=== PATIENT | female | born 1970 | race Caucasian/White ===

== ENCOUNTER → 2017-07-06 | Outpatient (CLI) | payer OTHER ==
--- NOTE | 2017-07-06 19:17 | CT ---
EXAMINATION TYPE: CT abdomen pelvis w con DATE OF EXAM: 07/06/2017 COMPARISON: 01/06/2011 HISTORY: Chronic kidney infections with back and abdominal pain x [address] DLP: 1195.60 mGycm Automated exposure control for dose reduction was used. TECHNIQUE: Helical acquisition of images was performed from the lung bases through the pelvis. CONTRAST: Performed with Oral Contrast and with IV Contrast, patient injected with 100 mL of Omnipaque 300. FINDINGS: Lung bases are clear. There is no pleural effusion. Liver spleen pancreas appear normal. There are cl ips from cholecystectomy. Bile ducts are not dilated. There is a 1 cm low-density left and right adrenal mass consistent with benign disease. Kidneys have normal size and contour. There is no hydronephrosis. There is normal contrast opacificat ion of the kidneys. There is no retroperitoneal adenopathy. There is no ascites. I see no intestinal wall thickening. There are no dilated loops. Appendix is not definitely seen. There is no sign of mara endicitis. I see no bony destructive process. Bladder distends smoothly. There is no sign of a pelvic mass. IMPRESSION: NEGATIVE CT SCAN OF THE ABDOMEN AND PELVIS. NO ADVERSE CHANGE COMPARED TO OLD EXAM. NO SIGN OF RENAL INFECTION.
== END | disposition home or self-care (01) ==
LOC: RADCTMAIN 16:55
PROVIDERS: ATTEND Family Medicine
DX: R10.9 Unspecified abdominal pain (principal); Z88.0 Allergy status to penicillin; Z88.1 Allergy status to other antibiotic agents
CPT/HCPCS: 74177; Q9967

== ENCOUNTER → 2017-07-18 | Outpatient (CLI) | payer OTHER ==
--- NOTE | 2017-07-18 17:19 | US ---
EXAMINATION TYPE: US neck DATE OF EXAM: 07/18/2017 COMPARISON: NONE CLINICAL HISTORY: R59.9 swollen lymph nodes,R22.0 Swelling/Mass Neck. Patient palpable area on left scanned, small lymph node noted here. Contralateral side scanned, no abnormal lymph nodes noted. IMPRESSION: No significant abnormality. There is a oval-shaped 5 x 3 mm area that could be a ordinary lymph node in the area of concern above the left clavicle.
== END | disposition home or self-care (01) ==
LOC: RADUSWWP 16:49
PROVIDERS: ATTEND Family Medicine
DX: R59.9 Enlarged lymph nodes, unspecified (principal)
CPT/HCPCS: 76536

== ENCOUNTER → 2018-06-19 | Outpatient (CLI) | payer BC ==
--- NOTE | 2018-06-19 12:20 | XR ---
EXAMINATION TYPE: XR chest 2V DATE OF EXAM: 06/19/2018 COMPARISON: NONE HISTORY: Preoperative evaluation. TECHNIQUE: Frontal and lateral views of the chest are obtained. FINDINGS: There is no focal air space opacity, pleural effusion, or pneumothorax seen. The cardiac silhouette size is within normal limits. The osseous structures are intact. Cholecystectomy clips r eside within the right upper quadrant. IMPRESSION: No acute cardiopulmonary process.
[2018-06-19 12:37] LABS: Appearance,Urine Clear (Clear); Bilirubin,Urine Negative (Negative); Blood,Urine Negative (Negative); Color,Urine Yellow; Glucose,Urine (UA) Negative (Negative); Ketones,Urine Negative (Negative); Leukocyte Esterase,Urine Negative (Negative); Nitrite,Urine Negative (Negative); PH, Urine 5.5 (5.0-8.0); Protein,Urine Negative (Negative); Specific Gravity,Urine 1.022 (1.001-1.035); Urobilinogen,Urine <2.0 mg/dL (<2.0)
[2018-06-19 12:38] LABS: Basophils % (A) 1 %; Eosinophils # (A) 0.2 k/uL (0-0.7); Eosinophils % (A) 2 %; HCT 48.2 % (34.0-46.0); Lymphocytes # (A) 2.1 k/uL (1.0-4.8); Lymphocytes % (A) 31 %; MCH 29.1 pg (25.0-35.0); MCHC 31.1 g/dL (31.0-37.0); MCV 93.8 fL (80.0-100.0); Mean Platelet Volume 10.2; Monocytes # (A) 0.3 k/uL (0-1.0); Monocytes % (A) 4 %; Neutrophils # (A) 4.1 k/uL (1.3-7.7); Neutrophils % (A) 61 %; Platelet Count 201 k/uL (150-450); RBC 5.14 m/uL (3.80-5.40); RDW 13.4 % (11.5-15.5); WBC 6.8 k/uL (3.8-10.6)
[2018-06-19 12:44] LABS: INR 0.9 (<1.2); Partial Thromboplastin Time 25.2 sec (22.0-30.0); Prothrombin Time 9.4 sec (9.0-12.0)
[2018-06-19 12:53] LABS: Anion Gap 10 mmol/L; Blood Urea Nitrogen 13 mg/dL (7-17); Carbon Dioxide 25 mmol/L (22-30); Chloride 107 mmol/L (98-107); Glucose 90 mg/dL (74-99); Potassium 4.8 mmol/L (3.5-5.1); Sodium 142 mmol/L (137-145)
== END | disposition home or self-care (01) ==
LOC: LABPAT 10:22
PROVIDERS: ATTEND Orthopaedic Surgery Orthopaedic Surgery of the Spine
DX: Z01.818 Encounter for other preprocedural examination (principal); M48.061 Spinal stenosis, lumbar region without neurogenic claudication; Z01.812 Encounter for preprocedural laboratory examination
CPT/HCPCS: 36415; 71046; 80048; 81003; 85025; 85610; 85730; 87070

== ENCOUNTER → 2018-06-19 | Outpatient (CLI) | payer BC ==
[2018-06-19 16:16] LABS: Protein, Total 7.4 g/dL (6.2-8.2)
[2018-06-20 13:35] LABS: Albumin 4.29 g/dL (3.80-4.90); Gamma Globulin 1.27 g/dL (0.70-1.50)
== END | disposition home or self-care (01) ==
LOC: LABWHC1 10:30
PROVIDERS: ATTEND Family Medicine
DX: K58.9 Irritable bowel syndrome, unspecified (principal)
CPT/HCPCS: 36415; 84165

== ENCOUNTER 2018-07-04 08:44 | Inpatient (IN) | payer BC, OTHER ==
[2018-07-02 09:36] VITALS: BMI 32.2
[~2018-07-04 08:44] MED LIST: BACITRACIN 50,000 UNIT, POLYMYXIN B 500,000 UNIT in SODIUM CHLORIDE 0.9% IRRIGATIO 1,00... IRRIGATION ONE; ceFAZolin IN SWFI 2 GM/20 ML SYRINGE IVP ONE
[2018-07-04] MEDS ORDERED: LIDOCAINE 1% 20 ML VIAL (10MG/ML) FOR IV START INTRADERMA PRN (09:16)
[2018-07-04] MEDS: LACTATED RINGERS 1,000 ML IV SCH (09:42)
[2018-07-04] MEDS ORDERED: ONDANSETRON 4 MG/2 ML VIAL IVP ONE (09:42)
[2018-07-04] MEDS ORDERED: MIDAZOLAM 2 MG/2 ML VIAL IV ONE (09:46)
[2018-07-04] MEDS ORDERED: fentaNYL (PF) 50 MCG/ML 2 ML AMP IVP ONE (11:50)
[2018-07-04] MEDS ORDERED: LACTATED RINGERS 1,000 ML IV ONE ×2 (12:05→15:55)
[2018-07-04] MEDS ORDERED: GLYCOPYRROLATE 0.2 MG/ML 2 ML VIAL ONE (13:27)
[2018-07-04] MEDS ORDERED: ePHEDrine SULFATE/0.9% NACL/PF 50 MG/5 ML SYRINGE IV ONE (13:27)
[2018-07-04] MEDS ORDERED: NEOSTIGMINE 1 MG/ML 10 ML VIAL ONE (13:27)
[2018-07-04] MEDS ORDERED: ROCURONIUM BROMIDE 10 MG/ML 10 ML VIAL IV ONE (13:27)
[2018-07-04] MEDS ORDERED: LIDOCAINE 1% INJ 10MG/ML (20 ML MDV) ONE (13:27)
[2018-07-04] MEDS ORDERED: SUCCINYLCHOLINE CHLORIDE 100 MG/5 ML SYR IV ONE (13:27)
[2018-07-04] MEDS ORDERED: PHENYLEPHRINE-0.9% NACL SYG 1 MG/10 ML SYRINGE ONE (13:27)
[2018-07-04] MEDS ORDERED: PROPOFOL 10 MG/ML 20 ML VIAL IV ONE (13:27)
[2018-07-04] MEDS ORDERED: fentaNYL (PF) 50 MCG/ML 2 ML AMP ONE (13:27)
[2018-07-04] MEDS ORDERED: MIDAZOLAM 2 MG/2 ML VIAL ONE (13:27)
[2018-07-04] MEDS ORDERED: LIDOCAINE 0.5%-EPI 1:200,000 50 ML VIAL SQ ONE (14:09)
[2018-07-04] MEDS ORDERED: GELATIN SPONGE,ABSORB (LARGE) 1 EACH SPONGE TOPICAL ONE (14:09)
[2018-07-04] MEDS ORDERED: THROMBIN (BOVINE) 5,000 UNIT VIAL TOPICAL ONE (14:10)
[2018-07-04] MEDS ORDERED: BENZOCAINE/MENTHOL LOZENG 1 EACH LOZENGE MUCOUS MEM PRN (16:24)
[2018-07-04] MEDS ORDERED: MAGNESIUM HYDROXIDE 2,400 MG/10 ML CUP PO PRN (16:24)
[2018-07-04] MEDS ORDERED: HYDROmorphone 1 MG/ML 1 ML SYRINGE IVP PRN ×2 (16:24)
[2018-07-04] MEDS ORDERED: ONDANSETRON 4 MG/2 ML VIAL IVP PRN (16:25)
[2018-07-04] MEDS ORDERED: SENNOSIDES 8.6 MG TAB PO PRN (16:27)
[2018-07-04] MEDS: HYDROmorphone 1 MG/ML 1 ML SYRINGE IVP PRN ×5 (16:35→23:59)
--- NOTE | 2018-07-04 16:35 | P.OP ---
Date of Procedure: 07/04/18 Preoperative Diagnosis: Spinal stenosis L5-S1, herniated nucleus pulposis L5-S1, degenerative disc disease L5-S1, low back pain with bilateral lower extremity radiculopathy Postoperative Diagnosis: Same Anesthesia: GETA Pathology: none sent Condition: stable Disposition: PACU Description of Procedure: DESCRIPTION OF PROCEDURE(S): BRIEF OPERATIVE NOTE Preoperative Diagnosis: Spinal stenosis L5-S1, herniated nucleus pulposis L5-S1 , degenerative disc disease L5-S1, low back pain with bilateral lower extremity radiculopathy Postoperative Diagnosis: Same Procedure: Laminectomy and decompression L5-S1 Minimally invasive Posterior lateral decompression and facet fusion L5-S1 Minimally invasive Transforaminal lumbar interbody fusion for a 360 fusion L5-S1 Discectomy for decompression L5-S1 Placement of interbody graft L5-S1 Local autogenous bone grafting Harvesting of bone marrow aspirate the pedicle of L5 bilaterally Use of Cell Saver Use of bone graft extenders Surgeon: Dr. Shea Frankfurter Inspector: Kapil Cole is present throughout the entire the case persistence during positioning, dissection, exposure, visualization, and all crucial elements of the case as well as closure. Anesthesia: General anesthesia per Dr. Jimenez Estimated blood loss: Approximately 100 mL Complications: None apparent Components implanted: K2 and minimally invasive [place] pedicle screw system with use of 4 screws measuring 6.5 mm in diameter to rods and 1 [place] interbody cage with osteo-amp sponge and DBX bone marrow fibers to supplement the local autogenous bone graft and bone marrow aspirate Disposition: To recovery room in good stable condition. OPERATIVE INDICATIONS The patient has had long-standing issues in their lower back and lower extremities. She is found have severe disc degeneration L5-S1 with disc herniation at L5-S1. She had bilateral foraminal stenosis which correlated with her low back and lower extremity radicular symptoms. She had been through extensive conservative treatment and had been taking a number of medications including oral pain medication with Percocet 7.5, 3 times a day was still having significant pain and debility. The patient has been through conservative treatment. We discussed various treatment options including surgery, and the patient wishes to proceed with surgery We discussed the risk, patient's alternatives and benefits of surgery including but not limited to, risk of bleeding risk of infection, risk of need for further surgery, risk of decreased, loss of motion, muscle function, malunion nonunion, hardware failure , nerve damage, paralysis, heart attack, blindness and . OPERATIVE SUMMARY After discussing all the risks, patient alternatives and benefits at length, the patient elected to proceed with surgical intervention, signed informed consent, and presented for their procedure. The patient was seen and examined in the preoperative holding area and the surgical site was marked. The patient was given antibiotics and brought to the operating room. The patient was sedated and intubated by anesthesia in standard fashion. The patient was positioned on to the operating room table in a prone position on the appropriate frame which was well-padded and well molded. We were careful to pad any bony prominences and pressure points. We were careful to maintain the patient's cervical spine and good neutral alignment and position throughout. The patient was prepped and draped in a normal standard fashion. An appropriate timeout and keystone protocol performed. We were able to proceed with the surgery. The local wound area was infiltrated with local anesthetic. I was able utilize C-arm guidance to establish appropriate position over the pedicles bilaterally at the appropriate levels at L5-S1. With the appropriate levels confirmed was able to make small stab incisions over the appropriate pedicle sites bilaterally. Utilizing C-arm in his house able to establish a Jamshidi needle over the lateral aspect of the pedicle and advanced the trocar into the pedicle being careful not to breech superiorly inferiorly medially or laterally. Position was confirmed regularly with AP and lateral images on C- arm. I was able to establish the trocar into the pedicle appropriately into the posterior aspect of the vertebral body bilaterally at the appropriate levels at L5-S1. This was done at each of the pedicle positions and each of the vertebrae. I was able to withdraw approximately 20 mL of bone marrow aspirate from the pedicle L5 to be used later in the case. I was able place the guidewire into the trocar and into the vertebral body appropriately under C- arm guidance. Dissection was taken down over the wire to the appropriate starting position for the screw placed. The appropriate length screw was chosen , threaded over the guidewire and screwed appropriately into the pedicle and vertebral body under C-arm guidance in excellent alignment and position with good bony purchase. This is done at each of the screw sites at the appropriate levels at L5-S1 left. With the screws intact I extended the incision to connect the screw hole sites on the most symptomatic side. I dissected down to establish access over the pars and lamina to the base of the spinous process. I was able to expose the facet joint. The capsule the facet was taken down and showed some facet arthrosis at the joint. I was able to use a combination of curettes and Kerrison rongeurs and a high-speed drill to take down the facet joint and do a facetectomy. Partial laminectomy was also performed. I was able get excellent foraminal decompression and central decompression with undermining across midline to perform a laminectomy centrally and contralaterally. As able get good central decompression. The ligamentum flavum was taken down to further decompress centrally and at bilateral neural foramen. I was able to expose the disc space and visualize the traversing nerve root. Note was made of some disc protrusion at the level causing further compression of the nerve root. There was evidence of calcified disc herniation and much the consultation was taken down piecemeal for the decompression and discectomy. I was able to establish a annulotomy at the appropriate level protecting soft tissue and neural structures. Note was made of some severe disc desiccation at the disc. I performed a complete discectomy with accommodation of curettes and rasps and scrapers. I was able get good endplate preparation at the disc space. I sized for the appropriate size interbody spacer protecting the soft tissue and neural structures. The wound was copiously irrigated and suctioned dry. There is no evidence of any dural tear or leak. I was able to pack the disc space with local autogenous bone graft as well as a small amount of bone graft which was also placed into the interbody cage itself. Protecting the soft tissue structures and neural structures I was able place the interbody cage in good alignment and good position with good fit and fill at the interbody space. His issues was confirmed with C-arm guidance. Good hemostasis maintained. There is no evidence of any dural tear or leak. The wound was irrigated and suctioned dry. With the hardware intact, intraoperative C-arm imaging was again taken which showed good alignment and position of the hardware at the appropriate levels at L5-S1. We were then able to measure, contour and place the rods and appropriate hardware bilaterally. I was able to place capcrews, tighten them down, and torque them with the torque screwdriver appropriately. With this intact I was able to place the local autogenous bone graft with additional bone graft enhancer as necessary into the posterior lateral gutters over the decorticated transverse processes. The remainder of the bone graft was placed over the facet joint on the contralateral side after taking down the facet joint capsule. With the bone graft intact, a stable construct, and good decompression at the appropriate levels, we were able to proceed with closure. Good hemostasis was maintained. There is no evidence of dural tear or leak. The fascia was closed for a watertight closure. he subcuticular tissue was closed with absorbable suture. The wound was cleaned and dried and dressed with the appropriate dressing. The drapes were broken down. The patient was gently rolled back onto their hospital bed being careful to maintain their cervical spine and good neutral alignment and position. They were woken up by anesthesia, extubated, and brought to the recovery room in good stable condition. The patient will be admitted to the hospital for appropriate postoperative care , medical management and monitoring. We will continue to follow them closely about the postoperative course.
[2018-07-04] MEDS: oxyCODONE-APAP 7.5-325MG 1 EACH TAB PO PRN (17:50)
[2018-07-04] MEDS: PANTOPRAZOLE 40 MG TABLET PO SCH (17:50)
[2018-07-04] MEDS: DIAZEPAM 5 MG TAB PO PRN ×2 (18:27→23:58)
[2018-07-04] MEDS: SODIUM CHLORIDE 0.9% 1,000 ML IV SCH (20:05)
[2018-07-04] MEDS: GABAPENTIN 300 MG CAP PO SCH (20:48)
--- NOTE | 2018-07-04 22:40 | FL ---
EXAMINATION TYPE: FL guidance operating room, XR lumbar spine 2 or 3V DATE OF EXAM: 07/04/2018 CLINICAL HISTORY: Low back pain. TECHNIQUE: Fluoroscopy. COMPARISON: None. FINDINGS: Fluoroscopic guidance was provided during minimally invasive lumbar fusion surgical proced ure performed by Dr. Shea. A total of 1 minute 25 seconds of fluoroscopic time was utilized during the procedure and 2 spot fluoroscopic intraoperative images are acquired. Intraoperative images acquired show placement of bilateral interpedicular rods and screws and metalli c disc material at L5-S1 level which appears satisfactory in alignment on intraoperative images saved . IMPRESSION: As Above.
[2018-07-04] MEDS: tiZANidine 4 MG TAB PO SCH (23:58)
[2018-07-04] MEDS: ceFAZolin IN SWFI 2 GM/20 ML SYRINGE IVP SCH (23:58)
[2018-07-05] MEDS: oxyCODONE-APAP 7.5-325MG 1 EACH TAB PO PRN ×4 (01:28→21:11)
[2018-07-05] MEDS: HYDROmorphone 1 MG/ML 1 ML SYRINGE IVP PRN ×4 (03:46→13:06)
[2018-07-05] MEDS: DIAZEPAM 5 MG TAB PO PRN ×3 (05:15→18:23)
[2018-07-05 07:28] LABS: Anion Gap 4 mmol/L; Blood Urea Nitrogen 9 mg/dL (7-17); Calcium 8.9 mg/dL (8.4-10.2); Carbon Dioxide 30 mmol/L (22-30); Chloride 106 mmol/L (98-107); Glucose 84 mg/dL (74-99); Potassium 4.5 mmol/L (3.5-5.1); Sodium 140 mmol/L (137-145)
[2018-07-05 07:29] LABS: Basophils % (A) 0 %; Eosinophils # (A) 0.1 k/uL (0-0.7); Eosinophils % (A) 1 %; HCT 38.8 % (34.0-46.0); HGB 12.6 gm/dL (11.4-16.0); Lymphocytes # (A) 1.3 k/uL (1.0-4.8); Lymphocytes % (A) 17 %; MCH 30.3 pg (25.0-35.0); MCHC 32.4 g/dL (31.0-37.0); MCV 93.5 fL (80.0-100.0); Mean Platelet Volume 10.5; Monocytes # (A) 0.3 k/uL (0-1.0); Monocytes % (A) 4 %; Neutrophils # (A) 5.8 k/uL (1.3-7.7); Neutrophils % (A) 76 %; Platelet Count 141 k/uL (150-450); RBC 4.15 m/uL (3.80-5.40); RDW 13.5 % (11.5-15.5); WBC 7.6 k/uL (3.8-10.6)
[2018-07-05] MEDS: DULoxetine HCL 60 MG CAPSULE.DR PO SCH (07:34)
[2018-07-05] MEDS: SODIUM CHLORIDE 0.9% 1,000 ML IV SCH (07:34)
[2018-07-05] MEDS: tiZANidine 4 MG TAB PO SCH ×2 (07:35→15:13)
[2018-07-05] MEDS: PANTOPRAZOLE 40 MG TABLET PO SCH ×2 (07:35→16:32)
[2018-07-05] MEDS: LACTOBACILLUS ACIDOPH & BULGAR 1 EACH PACKET PO SCH (07:36)
[2018-07-05] MEDS: DOCUSATE 100 MG CAP PO SCH (07:38)
[2018-07-05] MEDS: ceFAZolin IN SWFI 2 GM/20 ML SYRINGE IVP SCH (07:39)
[2018-07-05] MEDS: SENNOSIDES-DOCUSATE SODIUM 1 EACH TAB PO SCH (07:39)
[2018-07-05] MEDS: LACTATED RINGERS 1,000 ML IV SCH (07:44)
--- NOTE | 2018-07-05 07:53 | P.CONS ---
History of Present Illness - Reason for Consult Consult date: 07/05/18 Medical management - Chief Complaint Spinal stenosis - History of Present Illness This is a 48-year-old female who is essentially postoperative lumbar surgery. The patient states significant amount of pain postop day #1. No significant nausea or saddle numbness. No fever or chills stated. No side effects from anesthesia. I'm consulted for assistance with medical management. Review of Systems Constitutional: Denies chills, Denies fever Eyes: denies blurred vision, denies pain Ears, nose, mouth and throat: Denies headache, Denies sore throat Cardiovascular: Denies chest pain, Denies shortness of breath Respiratory: Denies cough Gastrointestinal: Denies abdominal pain, Denies diarrhea, Denies nausea, Denies vomiting Past Medical History Past Medical History: COPD, Fibromyalgia, GERD/Reflux, Hypertension, Musculoskeletal Disorder, Osteoarthritis (OA) Additional Past Medical History / Comment(s): Lupus antigen, ddd History of Any Multi-Drug Resistant Organisms: None Reported Past Surgical History: Bowel Resection, Cholecystectomy, Hysterectomy, Tonsillectomy Additional Past Surgical History / Comment(s): neck lymph node removal, PAIN CLINIC PROCEDURES, colonoscopy, Past Anesthesia/Blood Transfusion Reactions: Motion Sickness Additional Past Anesthesia/Blood Transfusion Reaction / Comm: states she wakes up quickly Smoking Status: Current every day smoker - Past Family History Mother Family Medical History: No Reported History Medications and Allergies Home Medications Medication Instructions Recorded Confirmed Type DULoxetine HCL [Cymbalta] 60 mg PO DAILY 10/07/15 07/04/18 History Gabapentin [Neurontin] 300 mg PO HS 10/07/15 07/04/18 History Ibuprofen [Motrin] 800 mg PO Q6H PRN 10/07/15 07/04/18 History L.acidoph,Paracasei, B.lactis 1 cap PO DAILY 10/07/15 07/04/18 History [Probiotic] Sennosides [Senokot] 8.6 mg PO DAILY PRN 10/07/15 07/04/18 History tiZANidine [Zanaflex] 4 mg PO Q8HR 10/07/15 07/04/18 History Docusate [Colace] 1 tab PO DAILY 10/12/15 07/04/18 History Omeprazole [PriLOSEC] 20 mg PO AC-BID 11/25/15 07/04/18 History Diclofenac Sodium [Voltaren] 75 mg PO BID 07/02/18 07/04/18 History oxyCODONE-APAP 7.5-325MG [Percocet 1 tab PO TID PRN 07/02/18 07/04/18 History 7.5-325 mg] Diclofenac Sodium [Voltaren] 25 mg PO BID 07/04/18 07/04/18 History Allergies Allergy/AdvReac Type Severity Reaction Status Date / Time nitrofurantoin AdvReac Rash/Hives Verified 07/04/18 16:39 [From Macrobid] nitrofurantoin AdvReac Rash/Hives Verified 07/04/18 16:39 macrocrystalline [From Macrobid] phenazopyridine HCl AdvReac Nausea & Verified 07/04/18 16:39 [From Pyridium] Vomiting pyrazinamide AdvReac Rash/Hives Verified 07/04/18 16:39 Physical Exam Vitals: Vital Signs Temp Pulse Resp BP BP Pulse Ox 07/05/18 07:15 98.1 F 90 16 112/72 90 L 07/05/18 00:10 16 07/05/18 00:00 98.8 F 83 111/73 07/04/18 20:30 84 16 07/04/18 19:15 84 118/79 07/04/18 19:00 84 122/69 07/04/18 18:45 73 117/94 07/04/18 18:30 88 127/81 07/04/18 18:15 82 158/104 07/04/18 18:00 73 128/80 07/04/18 17:45 77 127/79 07/04/18 17:30 98.5 F 62 111/77 98 07/04/18 17:00 87 16 138/78 94 L 07/04/18 16:45 92 18 136/77 94 L 07/04/18 16:27 96.8 F L 88 18 144/86 98 07/04/18 09:29 98.6 F 84 16 135/87 97 Intake and Output 07/04/18 07/05/18 07/05/18 22:59 06:59 14:59 Intake Total 1600 1000 Output Total 900 800 Balance 700 200 Intake: IV 100 Intake, IV Titration 600 600 Amount Sodium Chloride 0.9% 1, 600 600 000 ml @ 75 mls/hr IV . [id number] TANO Rx#:[id number] Oral 900 400 Output: Urine 900 800 Other: Voiding Method Indwelling Catheter - Constitutional General appearance: no acute distress - EENT Eyes: EOMI - Neck Neck: no lymphadenopathy - Cardiovascular Rhythm: regular Heart sounds: normal: S1, S2 Abnormal Heart Sounds: no S3 Gallop - Gastrointestinal General gastrointestinal: soft, no tenderness - Psychiatric Psychiatric: A&O x's 3, appropriate affect Results CBC & Chem 7: 07/05/18 06:11 07/05/18 06:11 Labs: Abnormal Lab Results - Last 24 Hours (Table) 07/05/18 Range/Units 06:11 Plt Count 141 L (150-450) k/uL Assessment and Plan (1) Fibromyalgia Current Visit: No Status: Chronic Code(s): M79.7 - FIBROMYALGIA SNOMED Code(s): 878406295 (2) Hip osteoarthritis Current Visit: No Status: Chronic Code(s): M16.9 - OSTEOARTHRITIS OF HIP, UNSPECIFIED SNOMED Code(s): 385210764 (3) Lumbar radiculopathy Current Visit: No Status: Chronic Code(s): M54.16 - RADICULOPATHY, LUMBAR REGION SNOMED Code(s): 801902551 (4) Lumbosacral spondylosis without myelopathy Current Visit: No Status: Chronic Code(s): M47.817 - SPONDYLS W/O MYELOPATHY OR RADICULOPATHY, LUMBOSACR REGION SNOMED Code(s): 48780097 Plan: Continue standard pulmonary toilet with the postoperative pain control. Check CBC and CMP in a.m. per Reconcile home medications. See orders otherwise. We will continue follow during hospitalization. We think consultation. Time with Patient: Less than 30
--- NOTE | 2018-07-05 08:19 | P.PN ---
Progress Note - Text Progress Note Date: 07/05/18 Postoperative day #1 Patient is seen and examined today at bedside. The patient has some pain around the surgical site as expected. Pain is being controlled with medication. She was having somewhat of of time last night but this seems to have settled overnight and she is more comfortable this morning with the pain control Physical Exam Afebrile with stable vital signs Abdomen is soft nontender. Chest has good excursion deep and space expiration The incision site is clean dry and intact. No erythema there is no purulence. The dressings are essentially intact with only a small amount of blood on the dressing but I will leave the dressing intact today Extremities have not had neurologic change from prior to surgery. She has sustained dorsal flexion plantar flexion and EHL intact. Calves and thighs were soft nontender without evidence of DVT. Assessment/Plan Postoperative day #1 status post minimally invasive decompression fusion L5-S1 for her stenosis with disc herniation and degenerative disc disease. Patient is progressing as expected from the surgery. She was having significant pain but seems to be adequately controlled at this point and she'll start mobilization today with physical therapy to ambulate We will continue to increase the patient's mobilization with therapy. We will continue pain control with oral or IV medications. We'll continue to follow patient closely.
[2018-07-05] MEDS ORDERED: HYDROmorphone 2 MG TAB PO PRN (13:33)
[2018-07-05] MEDS ORDERED: HYDROmorphone 4 MG TABLET PO PRN (13:34)
[2018-07-05] MEDS: HYDROmorphone 4 MG TABLET PO PRN ×3 (15:59→22:15)
[2018-07-05] MEDS: GABAPENTIN 300 MG CAP PO SCH (21:11)
[2018-07-06] MEDS: HYDROmorphone 4 MG TABLET PO PRN ×2 (00:47→04:28)
[2018-07-06] MEDS: tiZANidine 4 MG TAB PO SCH ×2 (00:47→10:24)
[2018-07-06] MEDS: DIAZEPAM 5 MG TAB PO PRN ×2 (04:29→11:46)
[2018-07-06 04:52] VITALS: RESP 16
[2018-07-06] MEDS: oxyCODONE-APAP 7.5-325MG 1 EACH TAB PO PRN (06:44)
--- NOTE | 2018-07-06 07:43 | P.PN ---
Subjective Progress Note Date: 07/06/18 Principal diagnosis: This is a continue progress in 8-year-old white female essentially admitted lumbar radiculopathy POD #2. The patient states much better pain control today. She is requiring about getting discharge soon. Patient states no fever. Tolerating diet appropriately. Objective - Vital Signs Vital signs: Vital Signs Temp 98.3 F 07/06/18 00:09 Pulse 86 07/06/18 00:09 Resp 16 07/06/18 00:00 BP 118/60 07/06/18 00:09 Pulse Ox 99 07/06/18 00:09 Intake & Output 07/05/18 07/06/18 07/06/18 18:59 06:59 18:59 Intake Total 420 665 Output Total 1100 Balance -680 665 Intake: Intake, IV Titration 600 Amount Sodium Chloride 0.9% 1, 600 000 ml @ 75 mls/hr IV . [id number] TANO Rx#:[id number] Oral 420 65 Output: Urine 1100 Other: Voiding Method Indwelling Catheter # Voids 1 3 - Constitutional General appearance: Present: average body habitus - EENT Eyes: Absent: abnormal pupil - Respiratory Respiratory: bilateral: CTA - Cardiovascular Rhythm: regular Abnormal Heart Sounds: Absent: S3 Gallop - Gastrointestinal General gastrointestinal: Present: soft. Absent: tenderness - Labs CBC & Chem 7: 07/05/18 06:11 07/05/18 06:11 Assessment and Plan (1) Fibromyalgia Current Visit: No Status: Chronic Code(s): M79.7 - FIBROMYALGIA SNOMED Code(s): 362064516 (2) Hip osteoarthritis Current Visit: No Status: Chronic Code(s): M16.9 - OSTEOARTHRITIS OF HIP, UNSPECIFIED SNOMED Code(s): 824183244 (3) Lumbar radiculopathy Current Visit: No Status: Chronic Code(s): M54.16 - RADICULOPATHY, LUMBAR REGION SNOMED Code(s): 118590667 (4) Lumbosacral spondylosis without myelopathy Current Visit: No Status: Chronic Code(s): M47.817 - SPONDYLS W/O MYELOPATHY OR RADICULOPATHY, LUMBOSACR REGION SNOMED Code(s): 51625879 Plan: Patient's hemodynamically is stable. Continue increasing ambulation with appropriate pain control. Anticipate discharge in next 24-48 hours if continuing trajectory of recovery. Time with Patient: Less than 30
[2018-07-06] MEDS: SODIUM CHLORIDE 0.9% 1,000 ML IV SCH ×2 (07:51→10:25)
[2018-07-06 07:54] VITALS: BP 103/68; PULSE 72
[2018-07-06 07:58] VITALS: TEMP 97.5
--- NOTE | 2018-07-06 08:06 | P.DS ---
Providers Date of admission: 07/04/18 08:44 Attending physician: Zakia Shea Consults: 07/04/18 16:25 Consult Physician Routine Consulting Provider: Ned Linder Consult Reason/Comments: Medical management Do you want consulting provider notified?: Yes Primary care physician: Ned Linder Hospital Course: The patient presented on the day of admission as per her operative note. the patient was initially admitted in regards her spinal stenosis and degenerative disc disease at L5-S1 and underwent her decompression and fusion as per her operative note. She feels she is making progress since her surgery. She's amatory and tolerating her diet well. She is passing gas and tolerating appropriately. Physical Exam The incision site is clean dry and intact. There is no erythema no drainage. There is no purulence no evidence of infection. There is no active drainage Abdomen soft and nontender. Chest has good excursion with deep inspiration and expiration. The patient has active and passive range of motion intact at the upper and lower extremities. There is no acute change in neurologic status. She has sustained dorsal to plantar flexion and EHL intact Hospital Course Postoperative day #2 status post minimally invasive decompression and fusion L5- S1 for her spinal stenosis and disc degeneration L5-S1 lower extremity radiculopathy. The patient has been making good progress postoperatively. They have completed the prophylactic antibiotics without any signs or symptoms of infection. The patient has been able to advance their diet, and is tolerating diet adequately. The pain was initially controlled with IV medications and is now controlled appropriately with oral medications. The patient has been able to increase their mobilization. The patient has progressed appropriately. I think they are in good stable condition for discharge today. They will be sent home with appropriate prescriptions as per Dr. Carrillo who is managing her pain medications. I answered their questions to the best of my ability in a language that they can understand and they are agreeable with the plan. They will follow up as directed in approximately 2 weeks or sooner she is having problems. Patient Condition at Discharge: Good Plan - Discharge Summary Discharge Rx Participant: No New Discharge Prescriptions: No Action DULoxetine HCL [Cymbalta] 60 mg PO DAILY tiZANidine [Zanaflex] 4 mg PO Q8HR Gabapentin [Neurontin] 300 mg PO HS Sennosides [Senokot] 8.6 mg PO DAILY PRN PRN Reason: Constipation L.acidoph,Paracasei, B.lactis [Probiotic] 1 cap PO DAILY Ibuprofen [Motrin] 800 mg PO Q6H PRN PRN Reason: Pain Docusate [Colace] 1 tab PO DAILY Omeprazole [PriLOSEC] 20 mg PO AC-BID Diclofenac Sodium [Voltaren] 75 mg PO BID oxyCODONE-APAP 7.5-325MG [Percocet 7.5-325 mg] 1 tab PO TID PRN PRN Reason: Pain Diclofenac Sodium [Voltaren] 25 mg PO BID Discharge Medication List DULoxetine HCL [Cymbalta] 60 mg PO DAILY 10/07/15 [History] Gabapentin [Neurontin] 300 mg PO HS 10/07/15 [History] Ibuprofen [Motrin] 800 mg PO Q6H PRN 10/07/15 [History] L.acidoph,Paracasei, B.lactis [Probiotic] 1 cap PO DAILY 10/07/15 [History] Sennosides [Senokot] 8.6 mg PO DAILY PRN 10/07/15 [History] tiZANidine [Zanaflex] 4 mg PO Q8HR 10/07/15 [History] Docusate [Colace] 1 tab PO DAILY 10/12/15 [History] Omeprazole [PriLOSEC] 20 mg PO AC-BID 11/25/15 [History] Diclofenac Sodium [Voltaren] 75 mg PO BID 07/02/18 [History] oxyCODONE-APAP 7.5-325MG [Percocet 7.5-325 mg] 1 tab PO TID PRN 07/02/18 [ History] Diclofenac Sodium [Voltaren] 25 mg PO BID 07/04/18 [History] Follow up Appointment(s)/Referral(s): Zakia Shea DO [Doctor of Osteopathic Medicine] - 2 Weeks Activity/Diet/Wound Care/Special Instructions: Keep site clean. May shower waterproof Tegaderm intact. Do not soak in a tub. On Monday, the patient may shower with area uncovered but leave Steri-Strips intact and allow them to fray off on their own. May ambulate to tolerance. Avoid heavy or rigorous activity. No repetitive bending twisting or lifting. No heavy work. Discharge Disposition: HOME SELF-CARE
[2018-07-06] MEDS: SENNOSIDES-DOCUSATE SODIUM 1 EACH TAB PO SCH (10:24)
[2018-07-06] MEDS: LACTOBACILLUS ACIDOPH & BULGAR 1 EACH PACKET PO SCH (10:24)
[2018-07-06] MEDS: PANTOPRAZOLE 40 MG TABLET PO SCH (10:24)
[2018-07-06] MEDS: DOCUSATE 100 MG CAP PO SCH (10:24)
[2018-07-06] MEDS: DULoxetine HCL 60 MG CAPSULE.DR PO SCH (10:24)
[2018-07-06] MEDS: LACTATED RINGERS 1,000 ML IV SCH (10:25)
== END 2018-07-06 12:11 | disposition home or self-care (01) | DRG 455 ==
LOC: 2ORMAIN 08:44 → 4SSUR 16:35
PROVIDERS: ADMIT Orthopaedic Surgery Orthopaedic Surgery of the Spine; ATTEND Orthopaedic Surgery Orthopaedic Surgery of the Spine
PROC: 30233N0 Transfusion of Autologous Red Blood Cells into Peripheral Vein, Percutaneous Approach (ICD-10-PCS; principal; 2018-07-04 12:15)
PROC: 0SG Lower Joints, Fusion (ICD-10-PCS; principal; 2018-07-04 12:15)
PROC: 0ST40ZZ Resection of Lumbosacral Disc, Open Approach (ICD-10-PCS; principal; 2018-07-04 12:15)
PROC: 0SG3071 Fusion of Lumbosacral Joint with Autologous Tissue Substitute, Posterior Approach, Posterior Column, Open Approach (ICD-10-PCS; principal; 2018-07-04 12:15)
DX: M51.17 Intervertebral disc disorders with radiculopathy, lumbosacral region (principal); M48.07 Spinal stenosis, lumbosacral region; F17.200 Nicotine dependence, unspecified, uncomplicated; I10 Essential (primary) hypertension; J44.9 Chronic obstructive pulmonary disease, unspecified; K21.9 Gastro-esophageal reflux disease without esophagitis; M16.10 Unilateral primary osteoarthritis, unspecified hip; M47.27 Other spondylosis with radiculopathy, lumbosacral region; M79.7 Fibromyalgia; Z79.899 Other long term (current) drug therapy; Z90.710 Acquired absence of both cervix and uterus; Z79.891 Long term (current) use of opiate analgesic; E66.9 Obesity, unspecified; Z68.32 Body mass index [BMI] 32.0-32.9, adult; Z90.49 Acquired absence of other specified parts of digestive tract; Z88.1 Allergy status to other antibiotic agents; Z88.8 Allergy status to other drugs, medicaments and biological substances
CPT/HCPCS: 72100; 80048; 85025; 86850; 86900; 86901

== ENCOUNTER → 2019-02-11 | Outpatient (CLI) | payer BC ==
[2019-02-11 16:52] LABS: African American GFR (CKD) 88.9 (60.0-200.0)
== END | disposition home or self-care (01) ==
LOC: LABWHC1 11:25
PROVIDERS: ATTEND Orthopaedic Surgery Orthopaedic Surgery of the Spine
DX: Z01.812 Encounter for preprocedural laboratory examination (principal); N28.9 Disorder of kidney and ureter, unspecified
CPT/HCPCS: 36415; 82565; 84520

== ENCOUNTER → 2021-04-16 | Outpatient (CLI) | payer BC ==
[2021-04-17 00:29] LABS: Basophils # (A) 0.04 X 10*3/uL (0.00-0.10); Basophils % (A) 0.6 %; Eosinophils # (A) 0.16 X 10*3/uL (0.04-0.35); Eosinophils % (A) 2.2 %; HCT 44.2 % (37.2-46.3); HGB 14.4 g/dL (12.0-15.0); Lymphocytes # (A) 2.81 X 10*3/uL (0.90-5.00); Lymphocytes % (A) 38.7 %; MCH 30.4 pg (27.0-32.0); MCHC 32.6 g/dL (32.0-37.0); MCV 93.4 fL (80.0-97.0); Mean Platelet Volume 13.7 fL (9.5-12.2); Monocytes # (A) 0.37 X 10*3/uL (0.20-1.00); Monocytes % (A) 5.1 %; Neutrophils # (A) 3.87 X 10*3/uL (1.80-7.70); Neutrophils % (A) 53.3 %; Platelet Count 182 X 10*3/uL (140-440); RBC 4.73 X 10*6/uL (4.10-5.20); RDW 13.6 % (11.5-14.5); WBC 7.26 X 10*3/uL (4.50-10.00)
[2021-04-17 13:47] LABS: Luteinizing Hormone 23.9 mIU/mL
[2021-04-17 13:48] LABS: Follicle Stimulating Hormone 40.9 mIU/mL
[2021-04-17 16:21] LABS: Albumin 4.6 g/dL (3.80-4.90); Albumin/Globulin Ratio 1.64 (1.60-3.17); Anion Gap 12.3 mmol/L (4.00-12.00); BUN/Creat Ratio 13.33 Ratio (12.00-20.00); Calcium 9.7 mg/dL (8.7-10.3); Carbon Dioxide 20.7 mmol/L (21.6-31.8); Globulin 2.8 g/dL (1.6-3.3); Non-African American GFR(CKD) 75.1 (60.0-200.0); T4, Free (Free Thyroxine) 0.7 ng/dL (0.80-1.80); Total Bilirubin 0.3 mg/dL (0.3-1.2); Total Protein 7.4 g/dL (6.2-8.2)
[2021-04-17 18:54] LABS: Uric Acid 6.2 mg/dL (2.9-7.7)
[2021-04-19 12:47] LABS: Albumin 4.63 g/dL (3.80-4.90); Gamma Globulin 1.33 g/dL (0.70-1.50)
== END | disposition home or self-care (01) ==
LOC: LABWHC1 14:58
PROVIDERS: ATTEND Family Medicine
DX: R53.83 Other fatigue (principal); R63.5 Abnormal weight gain; M51.36 Other intervertebral disc degeneration, lumbar region
CPT/HCPCS: 36415; 80053; 83001; 83002; 84165; 84439; 84443; 84550; 85025

== ENCOUNTER → 2021-08-26 | Outpatient (CLI) | payer BC ==
--- NOTE | 2021-08-27 08:34 | US ---
EXAMINATION TYPE: US kidneys/renal and bladder DATE OF EXAM: 08/26/2021 COMPARISON: NONE CLINICAL HISTORY: R30.0 Dysuria. back pain, dysuria for 2 months EXAM MEASUREMENTS: Right Kidney: 10.3 x 3.6 x 4.3 cm Left Kidney: 10.7 x 5.1 x 4.3 cm Right Kidney: no evidence of hydronephrosis Left Kidney: no evidence of hydronephrosis Bladder: appears wnl Bilateral Jets seen: yes There is no evidence for hydronephrosis at this point in time. No nephrolithiasis is seen. No asher s are identified. The urinary bladder is anechoic. Bilateral ureteral jets are seen. IMPRESSION: No distinct abnormality appreciated.
== END | disposition home or self-care (01) ==
LOC: RADUSWWP 15:44
PROVIDERS: ATTEND Family Medicine
DX: R30.0 Dysuria (principal)
CPT/HCPCS: 76770

== ENCOUNTER → 2021-11-03 | Outpatient (CLI) | payer BC ==
--- NOTE | 2021-11-03 14:00 | XR ---
EXAMINATION TYPE: XR ankle complete LT DATE OF EXAM: 11/03/2021 COMPARISON: NONE HISTORY: Pain TECHNIQUE: 3 views of the left ankle are submitted for evaluation. FINDINGS: There is no evidence for fracture or dislocation. Ankle mortise is intact. Soft tissues are within normal limits. IMPRESSION: 1. No evidence for acute fracture.
--- NOTE | 2021-11-03 14:01 | XR ---
EXAMINATION TYPE: XR foot complete LT DATE OF EXAM: 11/03/2021 CLINICAL HISTORY: pain TECHNIQUE: Frontal, lateral and oblique images of the left foot are obtained. COMPARISON: None. FINDINGS: There is no acute fracture/dislocation evident. The joint spaces appear within normal king its. The overlying soft tissue appears unremarkable. IMPRESSION: There is no acute fracture or dislocation. ICD 10 NO FRACTURE, INITIAL EVALUATION
== END | disposition home or self-care (01) ==
LOC: RADXRMAIN 13:26
PROVIDERS: ATTEND Family Medicine
DX: M25.572 Pain in left ankle and joints of left foot (principal)

== ENCOUNTER 2022-11-22 08:30 | Day surgery (SDC) | payer BC ==
[2022-11-21 09:50] VITALS: BMI 33.4
[~2022-11-22 08:30] MED LIST changes: -BACITRACIN 50,000 UNIT, POLYMYXIN B 500,000 UNIT in SODIUM CHLORIDE 0.9% IRRIGATIO 1,00... IRRIGATION ONE; +LACTATED RINGERS 1,000 ML IV SCH; +LIDOCAINE 1% (10MG/ML) FOR IV START INTRADERMA PRN; +PROPOFOL 10 MG/ML 20 ML VIAL IV ONE; -ceFAZolin IN SWFI 2 GM/20 ML SYRINGE IVP ONE
[2022-11-22 09:11] VITALS: TEMP 97
--- NOTE | 2022-11-22 09:28 | P.GSHP ---
History of Present Illness H&P Date: 11/22/22 Chief Complaint: Colon cancer screening 52-year-old female here today for colonoscopy. Last colonoscopy 10 years ago. Patient with history of colon cancer in her family in many cousins uncles and grandparents. About 2-3 weeks ago patient had a perirectal abscess that drained spontaneously. Patient took some antibiotics at home for a few days. She thinks she may have a fistula at this time. History of small bowel obstruction in the past Past Medical History Past Medical History: COPD, Fibromyalgia, GERD/Reflux, Hearing Disorder / Deafness, Hyperlipidemia, Hypertension, Osteoarthritis (OA), Skin Disorder Additional Past Medical History / Comment(s): "I had a rectal abcess about 1 week ago, it's gone now but it is draining, think I have a fistula." Lupus antigen. "Weird heartbeat, just monitor it, no problems". 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 Hx bowel obstruction X2, at and then again 12 yrs ago. Migraines. Mild Eczema. Hidradentis Suppurativa. "I have an artery that goes right along with my bowel from a defect, need to be very careful with any type of abdominal surgery not to cut it". Slight hearing difficulty. History of Any Multi-Drug Resistant Organisms: None Reported Past Surgical History: Bowel Resection, Cholecystectomy, Hysterectomy, Tonsillectomy Additional Past Surgical History / Comment(s): Bowel resections X2 - at and 12 yrs ago, lymph node removed from neck, PAIN CLINIC PROCEDURES, pain stimulator placed and removed due to MSSA infection, dental work X2. Past Anesthesia/Blood Transfusion Reactions: Previous Problems w/ Anesthesia, Postoperative Nausea & Vomiting (PONV) Additional Past Anesthesia/Blood Transfusion Reaction / Comment(s): Woke up with dental procedures X2. "I burn off anesthesia really fast due to Fibromyalgia". Nausea with Dilaudid. Past Psychological History: No Psychological Hx Reported Smoking Status: Current every day smoker Past Alcohol Use History: Occasional Additional Past Alcohol Use History / Comment(s): STARTED SMOKING AGE 19 (1988) 1PPD. Past Drug Use History: None Reported - Past Family History Mother Family Medical History: No Reported History Medications and Allergies Home Medications Medication Instructions Recorded Confirmed Type DULoxetine HCL [Cymbalta] 60 mg PO QAM 10/07/15 11/21/22 History Ibuprofen [Motrin] 800 mg PO Q6H PRN 10/07/15 11/21/22 History L.acidoph,Paracasei, B.lactis 1 cap PO DAILY 10/07/15 11/21/22 History [Probiotic] Sennosides [Senokot] 8.6 mg PO DAILY PRN 10/07/15 11/21/22 History Docusate [Colace] 1 tab PO DAILY PRN 10/12/15 11/21/22 History Omeprazole [PriLOSEC] 20 mg PO AC-BID 11/25/15 11/21/22 History Baclofen 10 mg PO TID 11/21/22 11/21/22 History Bisoprolol-Hctz 10-6.25 mg [Ziac 1 tab PO HS 11/21/22 11/21/22 History 10-6.25 MG] Pentosan Polysulfate Sodium 100 mg PO TID 11/21/22 11/21/22 History [Elmiron] oxyCODONE HCL/ACETAMINOPHEN 1 tab PO QID 11/21/22 11/21/22 History [Percocet 10-325 mg] Allergies Allergy/AdvReac Type Severity Reaction Status Date / Time amlodipine [From Lotrel] Allergy Swelling Verified 11/22/22 09:03 benazepril [From Lotrel] Allergy Swelling Verified 11/22/22 09:03 diclofenac [From Voltaren] Allergy Swelling Verified 11/22/22 09:03 nitrofurantoin AdvReac Rash/Hives Verified 11/22/22 09:03 [From Macrobid] nitrofurantoin AdvReac Rash/Hives Verified 11/22/22 09:03 macrocrystalline [From Macrobid] phenazopyridine HCl AdvReac Nausea & Verified 11/22/22 09:03 [From Pyridium] Vomiting pyrazinamide AdvReac Rash/Hives Verified 11/22/22 09:03 Surgical - Exam Vital Signs Temp Pulse Resp BP Pulse Ox 97.0 F L 62 16 156/75 97 11/22/22 09:08 11/22/22 09:08 11/22/22 09:08 11/22/22 09:08 11/22/22 09:08 Physical exam: General: Well-developed, well-nourished HEENT: Normocephalic, sclerae nonicteric Abdomen: Nontender, nondistended Extremities: No edema Neuro: Alert and oriented Assessment and Plan (1) Colon cancer screening Narrative/Plan: Will proceed with colonoscopy at this time. Current Visit: Yes Status: Acute Code(s): Z12.11 - ENCOUNTER FOR SCREENING FOR MALIGNANT NEOPLASM OF COLON SNOMED Code(s): 546963099
--- NOTE | 2022-11-22 09:46 | P.PCN ---
Date of Procedure: 11/22/22 Procedure(s) Performed: PREOPERATIVE DIAGNOSIS: Colon cancer screening. POSTOPERATIVE DIAGNOSIS: Sigmoid colon polyp, diverticulosis PROCEDURE: Colonoscopy with snare polypectomy ANESTHESIA: MAC SURGEON: Jaxson Donovan M.D. SPECIMENS: Polyp ENDOSCOPIC PROCEDURE: The patient was placed on the endoscopy table in the left decubitus position. The Olympus colonoscope was inserted into the anus and passed under direct visualization to the base of the cecum. The appendiceal orifice was visualized. From that point the scope was slowly withdrawn inspecting all surfaces carefully. There were no neoplastic inflammatory or polypoid lesions throughout the cecum, ascending, transverse, or descending colon. The sigmoid colon a small polyp was seen and removed using the snare with cautery technique. The remainder of the sigmoid and rectum appeared normal. The patient mild left-sided diverticulosis. The patient described a recent perirectal abscess with possible fistula. The patient had a small sinus opening present in the midline approximately 4-5 cm superior to the anal verge. There was induration here without erythema. This seemed to be tracking more superiorly than it did towards the anal region. This may represent a atypically low pilonidal cyst. The patient was taken to the recovery room in stable condition per anesthesia guidelines. RECOMMENDATIONS: Await biopsy results. Recommend repeat colonoscopy 5 years. Follow-up in the office to discuss the recent abscess and possible definitive surgical management.
[2022-11-22 09:54] VITALS: PULSE 53
[2022-11-22 10:07] VITALS: BP 116/64; RESP 18
== END 2022-11-22 10:34 ==
LOC: ORWHC2ENDO 08:30
PROVIDERS: ATTEND Surgery
DX: Z12.11 Encounter for screening for malignant neoplasm of colon (principal); D12.5 Benign neoplasm of sigmoid colon; K57.30 Diverticulosis of large intestine without perforation or abscess without bleeding; J44.9 Chronic obstructive pulmonary disease, unspecified; K21.9 Gastro-esophageal reflux disease without esophagitis; M79.7 Fibromyalgia; E78.5 Hyperlipidemia, unspecified; I10 Essential (primary) hypertension; K91.0 Vomiting following gastrointestinal surgery; M19.90 Unspecified osteoarthritis, unspecified site; F10.90 Alcohol use, unspecified, uncomplicated; F17.210 Nicotine dependence, cigarettes, uncomplicated; Z90.49 Acquired absence of other specified parts of digestive tract; Z98.84 Bariatric surgery status; Z90.89 Acquired absence of other organs; Z90.710 Acquired absence of both cervix and uterus
CPT/HCPCS: 45385; J2704; 88305

== ENCOUNTER 2023-01-09 11:07 | Day surgery (SDC) | payer BC ==
[~2023-01-09 11:07] MED LIST changes: +ACETAMINOPHEN TAB 500 MG TAB PO PRN; +HEPARIN SODIUM,PORCINE/PF 5,000 UNIT/0.5 ML SYRINGE SQ PRN; -LACTATED RINGERS 1,000 ML IV SCH; -LIDOCAINE 1% (10MG/ML) FOR IV START INTRADERMA PRN; -PROPOFOL 10 MG/ML 20 ML VIAL IV ONE; +Pre Op ABX Message 1 EACH MISC MISCELLANE ONE
[2023-01-09] MEDS ORDERED: LACTATED RINGERS 1,000 ML IV ONE ×2 (11:30→15:45)
[2023-01-09 11:39] VITALS: TEMP 97.4
[2023-01-09] MEDS ORDERED: ONDANSETRON 4 MG/2 ML VIAL ONE (11:42)
[2023-01-09] MEDS ORDERED: DEXAMETHASONE SOD PHOSPHATE 4 MG/ML 1 ML VIAL IVP ONE (12:04)
--- NOTE | 2023-01-09 14:47 | P.HPADDEND ---
H&P Addendum H&P Addendum Date: 01/09/23 Patient was evaluated in preop today. She says it is more inflamed again. She says she has noticed some purulent drainage. On exam the patient's cyst is slightly erythematous and mildly tender. She says this is a continuous process. We did offer starting the patient on antibiotics and postponing surgery but she states she would rather proceed since she believes this is likely to happen again if we reschedule. We discussed that depending on intraoperative findings we may decide to leave the wound open and packed with gauze for plans for closure by secondary intention and prolonged wound care. She understands this possibility and would like to proceed.
[2023-01-09] MEDS ORDERED: PROPOFOL 10 MG/ML 20 ML VIAL IV ONE (14:48)
[2023-01-09] MEDS ORDERED: KETOROLAC 15 MG/ML 1 ML VIAL ONE (14:48)
[2023-01-09] MEDS ORDERED: fentaNYL (PF) 50 MCG/ML 2 ML AMP ONE (14:48)
[2023-01-09] MEDS ORDERED: KETAMINE 10 MG/ML 20 ML VIAL ONE (14:48)
[2023-01-09] MEDS ORDERED: SUCCINYLCHOLINE CHLORIDE 200 MG/10 ML VIAL IV ONE (14:48)
[2023-01-09] MEDS ORDERED: MIDAZOLAM 2 MG/2 ML VIAL ONE (14:48)
[2023-01-09] MEDS ORDERED: SODIUM CHLORIDE 0.9% 100 ML BAG ONE (15:21)
[2023-01-09] MEDS ORDERED: ceFAZolin 1,000 MG VIAL ONE (15:21)
[2023-01-09] MEDS ORDERED: BUPIVACAINE (PF) 0.25% 30 ML VIAL SQ ONE (15:41)
[2023-01-09] MEDS ORDERED: NALOXONE 0.4 MG/ML 1 ML VIAL IV PRN (15:52)
[2023-01-09] MEDS ORDERED: HYDROcodone/APAP 5-325MG 1 EACH TAB PO PRN (15:52)
[2023-01-09] MEDS ORDERED: HYDROmorphone 1 MG/ML 1 ML SYRINGE IVP PRN (15:52)
--- NOTE | 2023-01-09 15:58 | P.OP ---
Date of Procedure: 01/09/23 Procedure(s) Performed: PREOPERATIVE DIAGNOSIS: Buttock/pilonidal cyst POSTOPERATIVE DIAGNOSIS: Same PROCEDURE: Excision buttock/pilonidal cyst with closure SURGEON: Zion EBL: 20 mL ANESTHESIA: General COMPLICATIONS: None OPERATIVE PROCEDURE: Patient was placed prone on the operating table after general anesthesia was achieved. The gluteal crease was prepped and draped in usual sterile fashion after the patient was placed in the prone jackknife position. The patient had a skin opening 6 cm from the anus. Extending superior to that in slightly to the left of midline was a area of induration with slight erythema and fluctuance. A small amount of purulent fluid was able to be evacuated through the skin opening there. An optical incision was made encompassing the cyst and the skin opening. Dissection through the subcutaneous tissues took place using sharp dissection and cautery. We never entered into the subcutaneous infected cyst cavity. Was another small 1-2 mm sinus opening to the right of midline proximally 5 mm from our skin edge. I probed this area and this did seem to track towards the midline about 7 mm. I decided to remove this portion of skin as well. The skin and subcutaneous fat was removed. No further extension of that sinus opening was noted. This was not felt to reflect a anal fistula. This is also atypical for typical pilonidal cyst however I would think this is the most likely etiology for this recurrent midline cystic lesion. The area was thoroughly irrigated with saline. It was localized with Marcaine. The subcutaneous tissues were closed using interrupted 3-0 Vicryl sutures. The skin was then closed using a running 4-0 Monocryl suture. Skin glue was used along the length of the skin closure. A sterile dressing was applied at that time. DISPOSITION: Stable to recovery room
[2023-01-09] MEDS ORDERED: HYDROmorphone 0.5 MG/0.5 ML SYRINGE IVP ONE ×2 (16:31→16:42)
[2023-01-09 16:47] VITALS: RESP 14
[2023-01-09 17:30] VITALS: BP 131/85; PULSE 58
== END 2023-01-09 17:44 | disposition home or self-care (01) ==
LOC: OR 11:07
PROVIDERS: ATTEND Surgery
DX: L05.91 Pilonidal cyst without abscess (principal); I10 Essential (primary) hypertension; E78.5 Hyperlipidemia, unspecified; J44.9 Chronic obstructive pulmonary disease, unspecified; F17.210 Nicotine dependence, cigarettes, uncomplicated; M79.7 Fibromyalgia; M19.90 Unspecified osteoarthritis, unspecified site; K21.9 Gastro-esophageal reflux disease without esophagitis; Z79.899 Other long term (current) drug therapy; Z79.1 Long term (current) use of non-steroidal anti-inflammatories (NSAID); Z88.1 Allergy status to other antibiotic agents; Z88.6 Allergy status to analgesic agent; Z88.8 Allergy status to other drugs, medicaments and biological substances
CPT/HCPCS: 11770; J2250; J0330; J1100; J2405; J0690; J3010; J1885; J2704; J1170; J1644; 88304

== ENCOUNTER → 2023-05-16 | Outpatient (CLI) | payer BC ==
--- NOTE | 2023-05-16 15:16 | CA ---
Transthoracic Echo Report Name: Edyta Jimenez Age: 53 Gender: F : 1970 Exam Date: 05/16/2023 13:34 Exam Location: [facility] Ht (in): 68 Wt (lb): 220 Ordering Physician: Ned Linder MD Attending/Referring Phys: Booking Officer Angelia Tidwell RDCS Procedure CPT: Indications: R42 dizziness and giddiness Cardiac Hx: Technical Quality: Good Contrast 1: Total Dose (mL): Contrast 2: Total Dose (mL): MEASUREMENTS (Male / Female) Normal Values 2D ECHO LV Diastolic Diameter PLAX 5.2 cm 4.2 - 5.9 / 3.9 - 5.3 cm LV Systolic Diameter PLAX 3.6 cm IVS Diastolic Thickness 1.1 cm 0.6 - 1.0 / 0.6 - 0.9 cm LVPW Diastolic Thickness 1.0 cm 0.6 - 1.0 / 0.6 - 0.9 cm LV Relative Wall Thickness 0.4 RV Internal Dim ED PLAX 3.3 cm LA Systolic Diameter LX 3.5 cm 3.0 - 4.0 / 2.7 - 3.8 cm LV Diastolic Volume MOD 4C 134.3 cm??? LV Systolic Volume MOD 4C 50.7 cm??? LV Ejection Fraction MOD 4C 62.2 % LV Cardiac Index MOD 4C 2218.2 cm???/min???m??? LV Diastolic Length 4C 7.9 cm LV Systolic Length 4C 6.2 cm LV Diastolic Volume MOD 2C 84.4 cm??? LV Systolic Volume MOD 2C 32.7 cm??? LV Ejection Fraction MOD 2C 61.2 % LV Cardiac Index MOD 2C 1370.7 cm???/min???m??? LV Diastolic Length 2C 8.1 cm LV Systolic Length 2C 6.6 cm LA Volume 72.5 cm??? 18 - 58 / 22 - 52 cm??? M-MODE Aortic Root Diameter MM 3.2 cm MV E Point Septal Separation 0.9 cm AV Cusp Separation MM 2.0 cm DOPPLER AV Peak Velocity 156.9 cm/s AV Peak Gradient 9.8 mmHg MV Area PHT 3.1 cm??? Mitral E Point Velocity 86.1 cm/s Mitral A Point Velocity 47.7 cm/s Mitral E to A Ratio 1.8 MV Deceleration Time 246.4 ms MV E' Velocity 6.9 cm/s Mitral E to MV E' Ratio 12.4 TR Peak Velocity 234.5 cm/s TR Peak Gradient 22.0 mmHg Right Ventricular Systolic Press 27.0 mmHg FINDINGS Left Ventricle Left ventricular ejection fraction is estimated at 55-60 %. Left ventricular cavity size normal. Mildly increased septal wall thickness. Mildly increased posterior wall thickness. Right Ventricle Mild right ventricular dilatation. Right ventricular systolic pressure within normal limits. Right Atrium Normal right atrial size. Left Atrium Moderately increased left atrial volume. Mildly increased left atrial area. Mitral Valve Structurally normal mitral valve. Trace mitral regurgitation. Aortic Valve Trileaflet aortic valve. No aortic valve stenosis or regurgitation. Tricuspid Valve Structurally normal tricuspid valve. Trace to mild tricuspid regurgitation. Pulmonic Valve Structurally normal pulmonic valve. No pulmonic regurgitation. Pericardium No pericardial effusion. Aorta Normal size aortic root and proximal ascending aorta. CONCLUSIONS Left ventricular ejection fraction 55-60% Mildly increased left ventricular wall thickness RVSP 27 Mildly dilated left atrium Trace mitral regurgitation Previewed by: Dr. Vinh Webster DO (Electronically Signed) Final Date: 16 May 2023 15:15
== END | disposition home or self-care (01) ==
LOC: RADECHMAIN 13:20
PROVIDERS: ATTEND Family Medicine
DX: I08.1 Rheumatic disorders of both mitral and tricuspid valves (principal); R42 Dizziness and giddiness
CPT/HCPCS: 93306

== ENCOUNTER → 2023-05-17 | Outpatient (CLI) | payer BC ==
--- NOTE | 2023-05-17 12:44 | US ---
EXAMINATION TYPE: US carotid duplex BILAT DATE OF EXAM: 05/17/2023 COMPARISON: NONE CLINICAL INDICATION: Female, 53 years old with history of R42 DIZZINESS AND GIDDINESS; Dizziness TECHNIQUE: Carotid duplex ultrasound examination. Indirect Doppler criteria was utilized. FINDINGS: EXAM MEASUREMENTS: RIGHT: Peak Systolic Velocity (PSV) cm/sec ----- Right CCA: 88.1 ----- Right ICA: 86.6 ----- Right ECA: 118.6 ICA/CCA ratio: 1.0 RIGHT: End Diastole cm/sec ----- Right CCA: 28.5 ----- Right ICA: 32.8 ----- Right ECA: 28.5 LEFT: Peak Systolic Velocity (PSV) cm/sec ----- Left CCA: 94.7 ----- Left ICA: 96.3 ----- Left ECA: 75.3 ICA/CCA ratio: 1.0 LEFT: End Diastole cm/sec ----- Left CCA: 38.1 ----- Left ICA: 39.1 ----- Left ECA: 23.6 VERTEBRALS (direction of flow): Right Vertebral: Antegrade Left Vertebral: Antegrade Rhythm: Normal PRODUCTION ENGINEER NOTES: No significant stenosis seen IMPRESSION: No significant stenosis identified. Criteria for Assigning % of Stenosis / Diameter reduction (Estimation based on the indirect measurements of the internal carotid artery velocities (ICA PSV). 1. Normal (no stenosis)=ICA PSV < 125 cm/s: ratio < 2.0: ICA EDV<40 cm/s. 2. Less than 50% stenosis=ICA PSV < 125 cm/s: ratio < 2.0: ICA EDV<40 cm/s. 3. 50 to 69% stenosis=ICA PSV of 125 to 230 cm/s: ration 2.0 ? 4.0: ICA EDV 40-100 cm/s. 4. Greater than 70% stenosis to near occlusion= ICA PSV > 230 cm/s: ratio > 4.0: ICA EDV > 100 cm/s. 5. Near occlusion= ICA PSV velocities may be low or undetectable: variable ratio and ICA EDV. 6. Total occlusion=unable to detect flow.
== END | disposition home or self-care (01) ==
LOC: RADUSWWP 11:22
PROVIDERS: ATTEND Family Medicine
DX: R42 Dizziness and giddiness (principal)
CPT/HCPCS: 93880

== ENCOUNTER → 2023-08-31 | Outpatient (CLI) | payer BC ==
--- NOTE | 2023-08-31 14:18 | CT ---
EXAMINATION TYPE: CT abdomen pelvis wo con DATE OF EXAM: 08/31/2023 HISTORY: Decreased urine output, Rt flank pain. CT DLP: 871.2 mGycm. Automated Exposure Control for Dose Reduction was Utilized. TECHNIQUE: CT scan of the abdomen and pelvis is performed without oral or IV contrast. COMPARISON: Prior CT 2017 FINDINGS: Within the limitations of a non-contrast study, the following observations are made. LUNG BASES: No significant abnormality is appreciated. LIVER/GB: Cholecystectomy clips are redemonstrated. PANCREAS: Moderate atrophy in the pancreatic head is more prominent from prior. SPLEEN: Posterior splenule axial image 48 is redemonstrated. ADRENALS: Persistent low dense bilateral adrenal masses. Right side is 2.1 cm in size axial image 38 similar to prior and thus can be presumed benign. Left side adrenal mass measures 2.6 x 1.7 cm axial image 42 and is larger versus prior. KIDNEYS: No renal stones or hydronephrosis is seen bilaterally. No intraluminal calculi in a poorly d istended bladder. BOWEL: No significant abnormality is seen. GENITAL ORGANS: Uterus is surgically absent. Scattered tiny bilateral calcified phleboliths are redem onstrated. LYMPH NODES: No greater than 1cm abdominal or pelvic lymph nodes are appreciated. OSSEOUS STRUCTURES: There is new posterior interpedicular rods and screws at the L5-S1 level bilatera lly. OTHER: Mild calcified plaque of the aorta extends into branch vessels. Stable small sized fat-contain ing umbilical hernia. IMPRESSION: 1. No renal stones or hydronephrosis is seen bilaterally. No suspicious new or acute findings on nonc ontrast CT to account for patient's symptoms. 2. Enlarging 2.6 cm left adrenal mass from 2017 study. Malignant etiology cannot be excluded. [facility] adrenal protocol CT or MRI follow-up is advised to further evaluate.
== END | disposition home or self-care (01) ==
LOC: RADCTMAIN 13:47
PROVIDERS: ATTEND Family Medicine
DX: E27.8 Other specified disorders of adrenal gland (principal); R34 Anuria and oliguria
CPT/HCPCS: 74176

== ENCOUNTER → 2023-09-12 | Outpatient (CLI) | payer BC ==
--- NOTE | 2023-09-13 23:16 | MR ---
EXAMINATION TYPE: MR abdomen wo/w con DATE OF EXAM: 09/12/2023 7:36 PM CLINICAL INDICATION:Female, 53 years old with history of D35.00 BENIGN NEOPLASM OF UNSPECIFIED ADRENA L GLAN; Adrenal mass COMPARISON: CT scan abdomen from 07/06/2017 and 08/31/2023. TECHNIQUE: Multiplanar multi-sequence imaging was performed without contrast. Post contrast imaging was performed. Post IV contrast subtraction images were also submitted for review. IV Contrast: 10 cc Gadobutrol FINDINGS: LOWER CHEST: No gross irregularity. ABDOMEN Liver: No evidence for hepatic steatosis or cirrhosis. Gallbladder and Bile ducts: No evidence for ductal dilation, or biliary stricture or evidence of chol edocholithiasis. The gallbladder is surgically absent. Pancreas: No ductal dilation. No evidence for solid mass. Lipomatous atrophy changes of the pancreas. Spleen: Normal for size. Adrenal glands: Left adrenal nodule with signal dropout on chemical shift in phase imaging measuring up to 1.9 cm. Kidneys: No evidence for obstructive uropathy. No suspicious renal masses. Stomach and Bowel: No evidence for bowel wall thickening or evidence for obstruction.. Peritoneum: No evidence of pneumoperitoneum or free fluid. Vasculature: No aortic aneurysm. Musculoskeletal: The osseous structures appear intact. Surgical changes to the lumbar spine with susc eptibility artifact. Lymph Nodes: No gross evidence for lymphadenopathy. Abdominal wall: Unremarkable. 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
== END | disposition home or self-care (01) ==
LOC: RADMRIMAIN 18:16
PROVIDERS: ATTEND Family Medicine
DX: E27.9 Disorder of adrenal gland, unspecified (principal)
CPT/HCPCS: 74183; A9585

== ENCOUNTER → 2024-04-18 | Outpatient (CLI) | payer BC | LOC: PNWHC3 13:45 | PROVIDERS: ATTEND Specialist | DX: M51.36 Other intervertebral disc degeneration, lumbar region | CPT/HCPCS: 99211 ==

== ENCOUNTER → 2024-04-18 | Outpatient (CLI) | payer BC ==
--- NOTE | 2024-05-14 08:05 | XR ---
Patient: Edyta Jimenez Ordering Physician: Unknown, Unknown ID: [id number] Phone, Pager: Phone: N/A Pager: N/A : 1970 Age/Gender: 54Y, F Primary Location: N/A Procedure: XR Spine Thoracic 3 Views Study Date: 04/18/2024 2:57:00 PM EXAMINATION TYPE: XR thoracic spine 3 views complete DATE OF EXAM: 04/18/2024 Comparison: None Clinical History: 54-year-old female chronic pain, no recent injury Findings: 12 rib bearing thoracic vertebral bodies. All pedicles are visualized. Mild degenerative disc disease mid and lower thoracic spine. Vertebral body heights are preserved and alignment is maintained. Some limitation assessment of the upper most thoracic vertebral bodies due to overlying shoulders. Cholec ystectomy clips. Impression: Mild degenerative disc disease mid to lower thoracic spine. No vertebral compression collapse or krystina lignment.
--- NOTE | 2024-05-14 08:06 | XR ---
Patient: Edyta Jimenez Ordering Physician: Unknown, Unknown ID: [id number] Phone, Pager: Phone: N/A Pager: N/A : 1970 Age/Gender: 54Y, F Primary Location: N/A Procedure: XR Spine Lumbosacral 2 or 3 Views Study Date: 04/18/2024 2:50:00 PM EXAMINATION TYPE: XR lumbar spine 3V DATE OF EXAM: 04/18/2024 Comparison: None Clinical History: 54-year-old female chronic pain, no recent injury. History of previous fusion Findings: 5 lumbar type vertebral bodies. L5-S1 posterior and interbody lumbar fusion is demonstrated. There ma y be minimal degenerative disc disease at L4-L5 given minimal anterior spondylosis. Otherwise, disc i nterspaces and vertebral body heights are maintained. Mild facet arthropathy L4-L5. Impression: Status post L5-S1 posterior and interbody lumbar fusion. Mild degenerative changes above the fusion a t L4-L5. No vertebral compression collapse or malalignment.
== END | disposition home or self-care (01) ==
LOC: RADXRMAIN 14:20
PROVIDERS: ATTEND Physician Assistant
DX: M51.34 Other intervertebral disc degeneration, thoracic region (principal); M47.816 Spondylosis without myelopathy or radiculopathy, lumbar region; G89.29 Other chronic pain; Z98.1 Arthrodesis status
CPT/HCPCS: 72070; 72100

== ENCOUNTER → 2024-05-03 | Outpatient (CLI) | payer BC ==
--- NOTE | 2024-05-05 12:33 | MM ---
Reason for Exam: Screening (asymptomatic). Last mammogram was performed 10 year(s) and 1 month(s) ago. Patient History: Menarche at age 13. First Full-Term at age 22. Hysterectomy at age 42. Postmenopausal. Patient used Hormonal Contraceptives for 8 years. Risk Values: Elizabeth 5 year model risk: 1.0%. NCI Lifetime model risk: 8.5%. Prior Study Comparison: 08/01/2012 Bilateral Screening Mammogram, [facility]. 04/25/2014 Bilateral Screening Mammogram, [facility]. Tissue Density: There are scattered areas of fibroglandular density. Findings: Analyzed By CAD. Right breast: There is no suspicious group of microcalcifications or new suspicious mass. Left breast: There is no suspicious group of microcalcifications or new suspicious mass. Overall Assessment: Negative, BI-RAD 1 Management: Screening Mammogram of both breasts in [address] [facility] will attempt to contact patient to return for supplemental views and ultrasound if indicated. Patient should continue monthly self-breast exams. A clinical breast exam by your physician is recommended on an annual basis. This exam should not preclude additional follow-up of suspicious palpable abnormalities. Note on Elizabeth scores and lifetime risk: 1. A Elizabeth score greater than 3% is considered moderate risk. If this is the case, consider specialist referral to assess eligibility for a risk reducing agent. 2. If overall lifetime risk for the development of breast cancer is 20% or higher, the patient may qualify for future screening with alternating mammogram and breast MRI. Electronically signed and approved by: Earl Fraser DO
== END | disposition home or self-care (01) ==
LOC: RADMAMWWP 16:42
PROVIDERS: ATTEND Family Medicine
DX: Z12.31 Encounter for screening mammogram for malignant neoplasm of breast
CPT/HCPCS: 77067

== ENCOUNTER → 2024-05-31 | Outpatient (CLI) | payer BC ==
--- NOTE | 2024-05-31 12:08 | MR ---
MRI of thoracic spine without contrast HISTORY: Chronic mid back pain and radiculopathy. COMPARISON: None. TECHNIQUE: Multiecho multiplanar images of thoracic spine were obtained without contrast FINDINGS: The thoracic vertebral segments are normal in height and alignment and there is no fracture or sublux ation. Disc spaces are well preserved in height. At the T7/T8 level there is a small to moderate disc spur complex posterior and to the left midline m ildly compromising the left lateral recess. At the T8-9 level there is a similar disc spur complex po sterior and to the left of midline mildly compromising the left lateral recess. There is no neural foraminal stenosis throughout the thoracic region. There is no thoracic canal sten osis. The thoracic cord is normal in size and signal intensity. No paraspinal soft tissue abnormalities are seen. IMPRESSION: 1. No thoracic vertebral body compression or malalignment. 2. This spaces well preserved and no significant degenerative disease. 3. Disc spur complexes slightly to the left midline at T7/T8 and T8/T9 probably compromising the lef t lateral recesses. 3. No thoracic cord abnormality. 4. No thoracic spinal stenosis or neural foraminal stenosis. [facility], , 05/31/2024 12:06 PM
== END | disposition home or self-care (01) ==
LOC: RADMRIMAIN 06:06
PROVIDERS: ATTEND Specialist
DX: M54.14 Radiculopathy, thoracic region (principal)
CPT/HCPCS: 72146

== ENCOUNTER → 2024-06-06 | Outpatient (CLI) | payer BC ==
[2024-06-06 13:53] VITALS: BP 130/80; PULSE 61; RESP 18; TEMP 98
--- NOTE | 2024-06-06 14:45 | P.PAINPG ---
Objective - Vital Signs Vital signs: Vital Signs Temp 98.0 F 06/06/24 13:37 Pulse 61 06/06/24 13:37 Resp 18 06/06/24 13:37 BP 130/80 06/06/24 13:37 Pulse Ox 92 L 06/06/24 13:37 FiO2 PQRS Measure Charge Sheet Mode of Arrival: Ambulatory Comment: A 54 yr old female w daughter at side with a history of severe and chronic thoracolumbar pain secondary to L5-S1 laminectomy w hardware presents today for imaging results. Pain level is provoked at 6 /10 in intensity, constant, predominantly axial, localized in the lumbar spine, achy in character w occasional shooting towards the spine. Pain is provoked by standing/ walking for periods > 20 min. Pain is alleviated with PT x 6 wks in 2021, physician guided home stretches daily since 2021, heat, ice, medications, repositioning and rest. Interventional pain procedures completed include SCS (2021) L5-S1 Laminectomy w Hardware Patient is currently on Percocet 10/325mg QID, Baclofen, Ibu Patient denies any side effects of the medication(s), denies excessive dr owsiness or sleepiness, denies suicidal ideation and reports that the current pain medication is helping to control the pain and improve activities of daily living. Patient denies any motor or sensory deficits. Patient denies any fever or night sweats, denies any change in the bowel movements or urination. Physical Examination: -Constitutional: Cooperative. Not in acute distress . - Neurologic: Cranial nerve II to XII intact. No focal neurological deficits. - Psychatric: Alert & oriented x 3. Matching mood & appropriate affect. Judgment and insight intact. - Musculoskeletal: Cervical spine: Muscle bulk/ tone/ strength in the bilateral upper extremities normal Vertebral body tenderness to palpation over Spurling test positive Distraction test positive Facet loading test positive TTP Thoracic spine Muscle bulk / tone/ strength in the bilateral paraspinal muscles normal Vertebral body tender to palpation over T7 BL lambert test positive T7-T8 Facet loading test positive TTP Lumbar spine: Motor bulk/ tone/ strength lower extremities , thigh and legs : 5/5 Deep tendon reflexes : Normal Knee Jerk. Normal Ankle Jerk . Vertebral body tenderness to palpation over Lambert Test positive Lumbar Facet Loading Test positive Straight Leg Raise: positive at 30 degrees right side/ left side Gaenslen's Test positive Sacral spine : Severe tenderness over the Sacroiliac joint: right side / left side Range of motion: Flexion of the lumbar spine <60 degrees Range of motion: Extension of the lumbar spine <20 degrees Gaenslen's Test positive right side / left side Derek test: positive right side / left side Thigh Thrust Test positive right side / left side Sacral Thrust Test positive right side / left side Assessment and plan: Chronic thoracolumbar secondary to radiculopathy, L5-S1 laminectomy w h ardware Recommendation of TRICIA T7-T8 #1. Risks, benefits of procedure discussed and pt verbalized understanding. Admits to anticoagulant use or medical history of diabetes. Protocol for discontinuation/ continuation of medications bibi procedure discussed. All questions answered. I have spent less than 30 minutes on patient care today. Dr Ojeda was available by phone for the evaluation of this patient. The time was used to review the medical records including relevant urine studies and Prescription history (MAPs), review of the available imaging, evaluation and examination of the patient, coordination of care with the medical staff and if applicable referring physicians, as well as creation of the medical record - Pain Location Upper Back Non-Pharmacological Interventions: Position/Reposition Pharmacological Interventions: Epidural, PRN Medication PQRS Narrative: Smoking Status Current every day smoker Narcotic Agreement Date Signed 06/06/24 Blood Pressure 130/80 Pain Intensity [Upper Back] 6 Scale Used Numeric (1 - 10) Hx Alcohol Use (MH) Yes: OCC. Home Medications: Ambulatory Orders DULoxetine HCL [Cymbalta] 60 mg PO QAM 10/07/15 Ibuprofen [Motrin] 800 mg PO Q6H PRN 10/07/15 L.acidoph,Paracasei, B.lactis [Probiotic] 1 cap PO DAILY 10/07/15 Sennosides [Senokot] 8.6 mg PO DAILY PRN 10/07/15 Docusate [Colace] 1 tab PO DAILY PRN 10/12/15 Omeprazole [PriLOSEC] 20 mg PO AC-BID 11/25/15 Baclofen 10 mg PO TID 11/21/22 Bisoprolol-Hctz 10-6.25 mg [Ziac 10-6.25 MG] 1 tab PO HS 11/21/22 Pentosan Polysulfate Sodium [Elmiron] 100 mg PO TID 11/21/22 oxyCODONE HCL/ACETAMINOPHEN [Percocet 10-325 mg] 1 tab PO QID 11/21/22 Amoxic-Pot Clav 875-125Mg [Augmentin 875-125] 1 tab PO BID 5 Days #10 tab 01/09/23 Controlled Substance Measures - Controlled Substance Measures Is patient prescribed a controlled substance at discharge?: No
== END | disposition home or self-care (01) ==
LOC: PNWHC3 13:23
PROVIDERS: ATTEND Specialist
DX: M54.14 Radiculopathy, thoracic region
CPT/HCPCS: 99211

== ENCOUNTER 2024-07-05 12:21 | Day surgery (SDC) | payer BC ==
[2024-07-02 10:42] VITALS: BMI 31.1
[~2024-07-05 12:21] MED LIST changes: -ACETAMINOPHEN TAB 500 MG TAB PO PRN; -HEPARIN SODIUM,PORCINE/PF 5,000 UNIT/0.5 ML SYRINGE SQ PRN; +LACTATED RINGERS 1,000 ML IV SCH; -Pre Op ABX Message 1 EACH MISC MISCELLANE ONE
[2024-07-05 12:50] VITALS: TEMP 98.2
[2024-07-05] MEDS ORDERED: DEXAMETHASONE SOD PHOSPHATE 10 MG/ML 1 ML VIAL ONE (13:10)
[2024-07-05] MEDS ORDERED: IOPAMIDOL M200 10 ML VIAL ONE (13:10)
--- NOTE | 2024-07-05 13:59 | P.PCN ---
Date of Procedure: 07/05/24 Surgeon: Anali Shah Pathology: none sent Condition: stable Disposition: PACU Description of Procedure: Thoracic radiculopathy POSTOPERATIVE DIAGNOSIS: Thoracic radiculopathy. PROCEDURE 1. Thoracic epidural steroid injection under fluoroscopic guidance at the T7-8 level. 2. Thoracic epidurogram. ANESTHESIA: Local only with 1% lidocaine EBL: Minimal PROCEDURE DESCRIPTION / TECHNIQUE: The patient was seen and identified in the preoperative area. Risks, benefits, complications including but not limited to infections ,bleeding ,allergic reaction to the medications ,nerve damage and not complete pain relief , and alternatives were discussed with the patient. The patient agreed to proceed with the procedure and signed the consent. IV was started, and vital signs were stable. Patient was taken to the OR and time out was completed. The patient was placed in the prone position on procedure table and a pillow was placed under the abdomen to reduce lumbar lordosis. The lumbosacral area was prepped and draped in the usual sterile fashion with ChloraPrep.Patient was closely monitored during the procedure. Conscious sedation was used during the procedure to decrease patients anxiety. Vital signs were monitered during the entire procedure. Using anterior-posterior fluoroscopy, the T7-8 interlaminar space was identified and the skin over this site was marked and then infiltrated with 1% lidocaine subcutaneously. Subsequently, a 20-gauge Tuohy epidural needle was inserted and advanced toward the epidural space using the Loss of resistance to air technique and guided by AP and lateral fluoroscopy. The correct needle position in the epidural space was verified with the injection of 1 mL of the water soluble contrast dye Omnipaque 180 contrast and observing an excellent epidurogram with the epidural spread of the dye, after negative aspiration for blood and CSF and in the absence of paresthesias. Again after negative aspiration, a 6 ml mixture containing 10 mg of Decadron and 5 ml of preservative free Normal Saline was injected and a washout of epidurogram was seen. Needle was withdrawn intact, skin was cleansed, and bandages were applied. patient tolerated procedure well and was transferred to PACU in stable condition.A copy of the needle placement picture was saved to the fluoroscopy machine. COMPLICATIONS: None
[2024-07-05 14:05] VITALS: BP 142/78; PULSE 53; RESP 16
--- NOTE | 2024-07-05 15:05 | FL ---
Fluoroscopy INDICATION: Pain FINDINGS: Fluoroscopy time: 30 seconds. Total dose area product (DAP) in uGy*m?, mGy*cm? (or similar): 0.34340 Images obtained: 3. Needle directed to the midthoracic region. IMPRESSION: 1. Documentation of fluoroscopy. [facility] , 07/05/2024 3:03 PM
== END 2024-07-05 14:19 | disposition home or self-care (01) ==
LOC: ORPAIN 12:21
PROVIDERS: ATTEND Anesthesiology
DX: M54.14 Radiculopathy, thoracic region (principal); I10 Essential (primary) hypertension; J44.9 Chronic obstructive pulmonary disease, unspecified; K58.0 Irritable bowel syndrome with diarrhea; Z88.5 Allergy status to narcotic agent; Z88.8 Allergy status to other drugs, medicaments and biological substances; Z88.6 Allergy status to analgesic agent; Z79.899 Other long term (current) drug therapy
CPT/HCPCS: 62321; J1100; Q9966

== ENCOUNTER → 2024-07-17 | Outpatient (CLI) | payer BC ==
[2024-07-17 14:04] VITALS: BP 119/68; PULSE 59; RESP 16
--- NOTE | 2024-07-17 14:20 | P.PAINPG ---
PQRS Measure Charge Sheet Comment: A 54 yr old female w daughter at side with a history of severe and chronic thoracolumbar pain secondary to L5-S1 laminectomy w hardware presents today for evaluation s/p TRICIA T7-T8 #1. Pt states she experienced >60 % pain relief x 2 wks s/p procedure. Pain level is provoked at 8 /10 in intensity, constant, p redominantly axial, localized in the thoracolumbar spine, achy in character without shooting pain. Pain is provoked by over activity. Pain is alleviated with PT x 6 wks in 2021, physician guided home stretches daily since 2021, heat, ice, medications, repositioning and rest. Interventional pain procedures completed include BL ilioinguinal (2015), BL MBB L3-L5 x1 (2015), SCS (2021) L5-S1 Laminectomy w Hardware, TRICIA T7-T8 x1 Patient is currently on Percocet 10/325mg QID, Baclofen, Ibu Patient denies any side effects of the medication(s), denies excessive drowsiness or sleepiness, denies suicidal ideation and reports that the current pain medication is helping to control the pain and improve activities of daily living. Patient denies any motor or sensory deficits. Patient denies any fever or night sweats, denies any change in the bowel movements or urination. Physical Examination: -Constitutional: Cooperative. Not in acute distress . - Neurologic: Cranial nerve II to XII intact. No focal neurological deficits. - Psychatric: Alert & oriented x 3. Matching mood & appropriate affect. Judgment and insight intact. - Musculoskeletal: Cervical spine: Muscle bulk/ tone/ strength in the bilateral upper extremities normal Vertebral body tenderness to palpation over Spurling test positive Distraction test positive Facet loading test positive TTP Thoracic spine Muscle bulk / tone/ strength in the bilateral paraspinal muscles normal Vertebral body tender to palpation over T8 BL lambert test positive T8-T9 Facet loading test positive TTP Lumbar spine: Motor bulk/ tone/ strength lower extremities , thigh and legs : 5/5 Deep tendon reflexes : Normal Knee Jerk. Normal Ankle Jerk . Vertebral body tenderness to palpation over Lambert Test positive Lumbar Facet Loading Test positive Straight Leg Raise: positive at 30 degrees right side/ left side Gaenslen's Test positive Sacral spine : Severe tenderness over the Sacroiliac joint: right side / left side Range of motion: Flexion of the lumbar spine <60 degrees Range of motion: Extension of the lumbar spine <20 degrees Gaenslen's Test positive right side / left side Derek test: positive right side / left side Thigh Thrust Test positive right side / left side Sacral Thrust Test positive right side / left side Assessment and plan: Chronic thoracolumbar secondary to radiculopathy, L5-S1 laminectomy w hardware Recommendation of TRICIA T8-T9 #2. Risks, benefits of procedure discussed and pt verbalized understanding. Admits to anticoagulant use or medical history of diabetes. Protocol for discontinuation/ continuation of medications bibi procedure discussed. All questions answered. I have spent less than 30 minutes on patient care today. Dr Ojeda was available by phone for the evaluation of this patient. The time was used to review the medical records including relevant urine studies and Prescription history (MAPs), review of the available imaging, evaluation and examination of the patient, coordination of care with the medical staff and if applicable referring physicians, as well as creation of the medical record PQRS Narrative: Smoking Status Current every day smoker Narcotic Agreement Date Signed 06/06/24 Hx Alcohol Use (MH) Yes: OCC. Home Medications: Ambulatory Orders DULoxetine HCL [Cymbalta] 60 mg PO QAM 10/07/15 Ibuprofen [Motrin] 800 mg PO Q6H PRN 10/07/15 L.acidoph,Paracasei, B.lactis [Probiotic] 1 cap PO DAILY 10/07/15 Sennosides [Senokot] 8.6 mg PO DAILY PRN 10/07/15 Docusate [Colace] 1 tab PO DAILY PRN 10/12/15 Omeprazole [PriLOSEC] 20 mg PO HS 11/25/15 Baclofen 10 mg PO TID 11/21/22 Bisoprolol-Hctz 10-6.25 mg [Ziac 10-6.25 MG] 1 tab PO HS 11/21/22 Pentosan Polysulfate Sodium [Elmiron] 100 mg PO TID 11/21/22 oxyCODONE HCL/ACETAMINOPHEN [Percocet 10-325 mg] 1 tab PO QID 11/21/22 Dicyclomine [Bentyl] 20 mg PO DAILY PRN 07/02/24 Fezolinetant [Veozah] 45 mg PO DAILY 07/02/24 Loratadine [Claritin] 10 mg PO DAILY 07/02/24 Controlled Substance Measures - Controlled Substance Measures Is patient prescribed a controlled substance at discharge?: No
== END ==
LOC: PNWHC3 13:12
PROVIDERS: ATTEND Specialist
DX: M54.17 Radiculopathy, lumbosacral region (principal); F17.200 Nicotine dependence, unspecified, uncomplicated; Z98.890 Other specified postprocedural states; Z88.8 Allergy status to other drugs, medicaments and biological substances; Z88.1 Allergy status to other antibiotic agents
CPT/HCPCS: 99211

== ENCOUNTER 2024-08-16 11:00 | Day surgery (SDC) | payer BC ==
[2024-08-08 10:45] VITALS: BMI 31.4
[2024-08-16] MEDS ORDERED: LACTATED RINGERS 1,000 ML IV SCH (11:16)
[2024-08-16] MEDS ORDERED: methylPREDNISolone ACETATE 80 MG/ML 1 ML VIAL ONE (12:55)
[2024-08-16] MEDS ORDERED: IOPAMIDOL M200 10 ML VIAL ONE (12:55)
--- NOTE | 2024-08-16 13:12 | P.PCN ---
Description of Procedure: PREOPERATIVE DIAGNOSIS: 1- Thoracic Degenerative Disc Diseases 2-Thoracic spondylosis with Facet arthropathy without myelopathy. 3-Thoracic spinal stenosis POSTOPERATIVE DIAGNOSIS: 1-Thoracic degenerative disc disease. 2-Thoracic spondylosis with facet arthropathy without myelopathy. 3-Thoracic spinal stenosis. PROCEDURE Injection of radio contrast material into T 8-9 interspace, interpretation of epidurogram, injection of steroid at T 8-9 epidural space under fluoroscopic guidance. ANESTHESIA: Lidocaine 1% subcutaneously. In OR continuous pulse ox, EKG, blood pressure and verbal communication was maintained with the patient. EBL: Minimal PROCEDURE INDICATION: Before the procedure were discussed with the patient d etailed procedure, alternatives, complications including lung puncture, infection, bleeding, nerve damage, paralysis all of which could be permanent. Patient understands and all questions were answered. PROCEDURE DESCRIPTION : After getting consent, patient in OR in prone position. Back was prepped with chlorhexidine and draped in sterile fashion. After injecting 10 mL of 1% lidocaine subcutaneously, a 20-gauge Tuohy needle was introduced at T 8-9 interspace with loss of resistance technique using a syringe filled with air. Negative CSF, negative blood, negative paresthesia. Needle position was confirmed with AP and lateral view of the fluoroscope. After repeat negative aspiration 2 mL of Omnipaque 200 water soluble contrast was injected. Contrast was noted in the epidural space. No contrast was noted into intrathecal or intravascular space. After repeat negative aspiration 5 mL solution was injected intermittently which consists of 4 mL of preservative-free normal saline mixed with 1 mL of 80 mg Depo-Medrol. Needle was withdrawn intact. Skin was cleansed and Band-Aids was applied. DISPOSITION / PLANS: The patient tolerated the procedure well. No complication. The patient was placed in a supine position and transferred to the recovery area in a stable condition for observation. There was no evidence of lower extremity motor or sensory deficit after the procedure. Patient was discharged from the recovery room after meeting discharge criteria. Home discharge instructions were given to the patient by the staff. The patient was reexamined prior to discharge. The patient will schedule a follow up in the clinic in 2-4 weeks.
[2024-08-16 13:20] VITALS: PULSE 48; RESP 16
[2024-08-16 13:31] VITALS: BP 129/83
--- NOTE | 2024-08-16 13:48 | FL ---
EXAMINATION TYPE: FL guided pain mgmt statistic DATE OF EXAM: 08/16/2024 1:16 PM COMPARISON: Pre Operative Images if available both CT/MRI or plain film CLINICAL INDICATION: Female, 54 years old with history of T SPINE INJECTION; TECHNIQUE: FL guided pain mgmt statistic, multiple fluoroscopic images provided for procedure. Total fluoroscopy time: 28 seconds Total submitted images to PACS: 2 DAP: 0.90857 mGym2 Gycm2 uGym2 cGycm2 or equivalent. FINDINGS: Fluoroscopic images during injection for pain management demonstrate multilevel degeneration changes throughout the spine. No evidence for fracture. No acute process identified. IMPRESSION: 1. No evidence for intraoperative complication. 2. Please see the operative/procedural note for further details. [facility], , 08/16/2024 1:46 PM
== END 2024-08-16 13:32 | disposition home or self-care (01) ==
LOC: ORPAIN 11:00
PROVIDERS: ATTEND Pain Medicine Interventional Pain Medicine
DX: M47.814 Spondylosis without myelopathy or radiculopathy, thoracic region (principal); M51.34 Other intervertebral disc degeneration, thoracic region; M48.04 Spinal stenosis, thoracic region; Z79.1 Long term (current) use of non-steroidal anti-inflammatories (NSAID); Z88.8 Allergy status to other drugs, medicaments and biological substances; Z88.1 Allergy status to other antibiotic agents
CPT/HCPCS: 62321

== ENCOUNTER → 2024-11-12 | Outpatient (CLI) | payer BC ==
--- NOTE | 2024-11-12 15:56 | MR ---
INDICATION: Patient age:Female; 54 years old; Reason for study: M51.36 OTHER INTVRT DISC DEGEN, LUM RGN; PHH. COMPARISONS: Lumbar spine radiograph 05/11/2024, 07/04/2018, CT abdomen and pelvis 08/31/2023 07/06/2017, MR lumbar spine 08/07/2015. TECHNIQUE: Multi planar, multi sequence imaging was performed utilizing: T1-weighted, T2-weighted, a nd turbo inversion recovery imaging of the lumbar spine. The patient was not given contrast. FINDINGS: Postsurgical changes from posterior fusion with bilateral pedicular screws and rods involv ing L5-S1 with disc spacer. Hardware creates susceptibility artifact which limits evaluation. The lum bar vertebral bodies do have preserved heights and alignment. Disc desiccation at L4-L5. Multilevel anterior osteophytosis of the visualized lower thoracic spine. No abnormal STIR signal. The conus me dullaris and the distal spinal cord do appear unremarkable with regards to their signal intensity and morphology. L1-L2: No significant disc pathology is identified. The spinal canal and neural foramen are patent. L2-L3: No significant disc pathology is identified. The spinal canal and neural foramen are patent. L3-L4: No significant disc pathology is identified. The spinal canal and neural foramen are patent. L4-L5: Broad-based disc bulge with ligamentum flavum buckling resulting in mild central canal stenosi s. Bilateral facet arthropathy resulting in mild bilateral neural foraminal stenosis. L5-S1: Postsurgical changes without significant central canal stenosis. Bilateral facet arthropathy w ith mild bilateral neural foraminal stenosis. Other significant findings: None. IMPRESSION: 1. Postsurgical changes of the lumbar spine from L5-S1. Mild bilateral neural foraminal stenosis at this level without significant central canal stenosis. 2. Mild degenerative disc disease and facet arthropathy at L4-L5 as described above. [facility], , 11/12/2024 3:53 PM
== END | disposition home or self-care (01) ==
LOC: RADMRIMAIN 14:31
PROVIDERS: ATTEND Family Medicine
DX: M51.360 Other intervertebral disc degeneration, lumbar region with discogenic back pain only (principal); M48.061 Spinal stenosis, lumbar region without neurogenic claudication; M47.816 Spondylosis without myelopathy or radiculopathy, lumbar region
CPT/HCPCS: 72148